=== PATIENT | male | born 1985 | race Caucasian/White ===

== ENCOUNTER 2018-08-11 19:05 | Emergency (ER) | payer BC ==
[2018-08-11] MEDS ORDERED: Lidocaine 1% 20 ML MDV ONE (19:12)
[2018-08-11 19:25] VITALS: BP 135/69
[2018-08-11] MEDS ORDERED: Lidocaine 1% 30 ML SDV INJECT SCH (19:30)
--- NOTE | 2018-08-11 19:33 | EDM.PDOC ---
ED HPI GENERAL MEDICAL PROBLEM - General Chief Complaint: General Stated Complaint: left hand laceration Time Seen by Provider: 08/11/18 19:10 Source of Information: Reports: Patient History Limitations: Reports: No Limitations - History of Present Illness INITIAL COMMENTS - FREE TEXT/NARRATIVE: cut posterior aspect of fourth left finger on light. Minimal amount of bleeding noted. No numbness or tenderness noted. Onset: Today Location: Reports: Lower Extremity, Left - Related Data Allergies Allergy/AdvReac Type Severity Reaction Status Date / Time No Known Allergies Allergy Verified 01/17/16 11:06 Home Meds: Home Meds . [No Known Home Meds] 05/02/15 [History] Past Medical History - Past Surgical History Other GI Surgeries/Procedures: gastric sleeve Social & Family History - Family History Family Medical History: Noncontributory - Tobacco Use Smoking Status *Q: Never Smoker ED ROS GENERAL - Review of Systems Review Of Systems: See Below Skin: Reports: Wound ED EXAM, GENERAL - Physical Exam Exam: See Below Exam Limited By: No Limitations General Appearance: Alert, WD/WN, No Apparent Distress Skin Exam: Warm, Dry, Wound/Incision (2 cm laceration to the posterior aspect of the left fourth finger. No numbness or tingling noted. Good sensation noted to the distal tip of the finger.) ED GENERAL MEDICAL PROCEDURES - Laceration/Wound Repair Left Proximal Dorsal Digit - 4th (Ring) Lac/wound length in cm: 2 Appearance: Linear Anesthetic Type: Local Local Anesthesia - Lidocaine (Xylocaine): 1% Plain Local Anesthetic Volume: 2cc Skin Prep: Saline Exploration/Debridement/Repair: In a Bloodless Field Closed with: Sutures Suture Size: 4-0 # of Sutures: 3 Suture Type: Interrupted Tetanus Status Addressed: Yes Complications: No Course - Vital Signs Last Recorded V/S: Last Vital Signs Temp 98.9 F 08/11/18 19:16 Pulse 65 08/11/18 19:16 Resp 18 08/11/18 19:16 BP 135/69 08/11/18 19:16 Pulse Ox 98 08/11/18 19:16 - Orders/Labs/Meds Meds: Medications Discontinued Medications Generic Name Dose Route Start Last Admin Trade Name Freq PRN Reason Stop Dose Admin Lidocaine HCl Confirm 08/11/18 19:12 08/11/18 19:29 Xylocaine 1% Administered 08/11/18 19:13 Not Given Dose 20 ml .ROUTE .STK-MED ONE Lidocaine HCl 20 ml 08/11/18 19:30 08/11/18 19:38 Xylocaine-Mpf 1% INJECT 20 ml STAT KOSTA Administration Departure - Departure Time of Disposition: 19:30 Disposition: Home, Self-Care 01 Condition: Good Clinical Impression: Laceration of finger of left hand Qualifiers: Encounter type: initial encounter Finger: ring finger Damage to nail status: without damage Foreign body presence: without foreign body Qualified Code(s): S61.215A - Laceration without foreign body of left ring finger without damage to nail, initial encounter - Discharge Information *PRESCRIPTION DRUG MONITORING PROGRAM REVIEWED*: Not Applicable *COPY OF PRESCRIPTION DRUG MONITORING REPORT IN PATIENT BEE: Not Applicable Instructions: Sutured Wound Care Referrals: Provider,Unknown [Primary Care Provider] - Forms: ED Department Discharge Additional Instructions: keep finger clean and dry May shower but do not soak in water sutures out in 10 days recheck if any signs of infection occur - Problem List & Annotations (1) Laceration of finger of left hand SNOMED Code(s): 383305032 Code(s): S61.219A - LACERATION W/O FB OF UNSP FINGER W/O DAMAGE TO NAIL, INIT Status: Acute Priority: High Qualifiers: Encounter type: initial encounter Finger: ring finger Damage to nail status: without damage Foreign body presence: without foreign body Qualified Code(s): S61.215A - Laceration without foreign body of left ring finger without damage to nail, initial encounter - Problem List Review Problem List Initiated/Reviewed/Updated: Yes
== END 2018-08-11 19:40 | disposition home or self-care (01) ==
LOC: CC.ED 19:05
DX: S61.215A Laceration without foreign body of left ring finger without damage to nail, initial encounter (principal); W45.8XXA Other foreign body or object entering through skin, initial encounter; Z98.84 Bariatric surgery status
CPT/HCPCS: 12001; 99282

== ENCOUNTER 2023-07-14 21:43 | Emergency (ER) | payer OTHER ==
[2023-07-14] MEDS ORDERED: Lidocaine 2% 5 ML SDV INJECT ONE (21:56)
[2023-07-14] MEDS ORDERED: Take Home: Ciprofloxacin 500 MG Tab, 2 Tab Pack PO ONE (22:15)
[2023-07-14] MEDS ORDERED: Take Home: Sulfamethoxazole/Trimethoprim 800-160 MG Tab, 6 Tab Pack PO ONE (22:15)
[2023-07-14] MEDS ORDERED: Bacitracin/Neomycin/Polymyxin B Oint 0.9 GM U/D Packet TOP ONE (22:16)
[2023-07-15 00:24] VITALS: BP 144/72; PULSE 70
== END 2023-07-14 22:35 | disposition home or self-care (01) ==
LOC: CC.ED 21:43
DX: L02.512 Cutaneous abscess of left hand (principal)
CPT/HCPCS: 10060; 99283; A9270-GY; J3490